=== PATIENT | male | born 1990 | race Caucasian/White ===

== ENCOUNTER 2022-07-02 17:23 | Outpatient (CLI) | payer OTHER, SELFPAY ==
[2022-07-02 14:34] LABS: Albumin* 4.6 g/dL (3.3-5.0); Chloride* 106 mmol/L (96-114); Potassium* 4.7 mmol/L (3.6-5.1); Sodium* 140 mmol/L (135-149)
[2022-07-02 14:36] LABS: Carbon Dioxide* 24 mmol/L (20-32); Cholesterol* 257 mg/dL (90-199); Creatinine* 0.9 mg/dL (0.5-1.5); Estimated Glomerular Filt Rate 117 ml/min
[2022-07-02 14:37] LABS: Alanine Aminotransferase* 31 U/L (4-50); Alkaline Phosphatase* 62 U/L (40-150); Aspartate Amino Transferase* 25 U/L (12-35); Bilirubin Total* 0.5 mg/dL (0.1-1.5); Blood Urea Nitrogen* 22 mg/dL (5-24); Calcium* 9.6 mg/dL (8.4-10.6); Glucose* 86 mg/dL (60-115); HDL Cholesterol* 64 mg/dL (>=40); LDL Cholesterol Calculated 169 mg/dL (<100); Total Protein* 7.3 g/dL (6.0-8.3); Triglycerides* 118 mg/dL (40-149)
[2022-07-04 01:33] LABS: Free T3 3.3 pg/mL (2.5-4.3)
== END 2022-07-02 17:24 | disposition home or self-care (01) ==
PROVIDERS: PCP Family Medicine; Visit Provider Nurse Practitioner Family
DX: Z79.899 Other long term (current) drug therapy (principal); Z13.6 Encounter for screening for cardiovascular disorders; Z13.29 Encounter for screening for other suspected endocrine disorder
CPT/HCPCS: 80053; 80061; 84443; 84481

== ENCOUNTER 2023-07-01 10:44 | Outpatient (CLI) | payer OTHER, SELFPAY | END 2023-07-01 10:45 | disposition home or self-care (01) | LOC: LKVREF 10:44 | PROVIDERS: PCP Family Medicine; Visit Provider Family Medicine | DX: Z00.00 Encounter for general adult medical examination without abnormal findings (principal); E78.00 Pure hypercholesterolemia, unspecified; R53.83 Other fatigue; E55.9 Vitamin D deficiency, unspecified; F41.8 Other specified anxiety disorders | CPT/HCPCS: 80048; 80061; 82306 ==

== ENCOUNTER 2024-08-03 14:52 | Outpatient (CLI) | payer OTHER, SELFPAY | END 2024-08-03 14:53 | disposition home or self-care (01) | PROVIDERS: PCP Family Medicine; Visit Provider Family Medicine | DX: E55.9 Vitamin D deficiency, unspecified (principal); E78.00 Pure hypercholesterolemia, unspecified; F41.8 Other specified anxiety disorders | CPT/HCPCS: 80053; 80061; 82306 ==

== ENCOUNTER 2025-07-02 10:50 | Outpatient (CLI) | payer BC, SELFPAY ==
[2025-07-02 21:43] LABS: Hematocrit* 44.9 % (37.0-53.0); Hemoglobin* 15.1 gm/dL (13.5-17.5); Immature Granulocytes Abs Auto 0.01 K/uL (0.00-0.30); Immature Granulocytes Pct Auto 0.2 %; Lymphocytes Absolute Auto 1.69 K/uL (0.90-2.90); Mean Corpuscular HGB Conc 34 gm/dL (32-36); Mean Corpuscular Hemoglobin 29 pg (26-34); Mean Corpuscular Volume 87 fL (80-100); RDW Coefficient of Variation % 12.8 % (11.5-15.5); Red Blood Count* 5.19 m/uL (4.30-5.90); White Blood Count* 5.69 K/uL (4.50-11.00)
[2025-07-02 21:51] LABS: Slide Review Reflex No
[2025-07-02 22:13] LABS: Free T4 Free Thyroxine* 0.95 ng/dL (0.70-1.85)
[2025-07-02 23:49] LABS: Albumin* 4.2 g/dL (3.3-5.0); Chloride* 106 mmol/L (96-114); Potassium* 4.6 mmol/L (3.6-5.1); Sodium* 136 mmol/L (135-149)
[2025-07-02 23:51] LABS: Blood Urea Nitrogen* 14 mg/dL (5-24); Creatinine* 0.9 mg/dL (0.5-1.5); Estimated Glomerular Filt Rate 115 ml/min
[2025-07-02 23:52] LABS: Alanine Aminotransferase* 19 U/L (4-50); Alkaline Phosphatase* 44 U/L (40-150); Anion Gap 4 mEq/L (7-15); Aspartate Amino Transferase* 21 U/L (12-35); Bilirubin Total* 0.5 mg/dL (0.1-1.5); Calcium* 9.6 mg/dL (8.4-10.6); Carbon Dioxide* 26 mmol/L (20-32); Glucose* 88 mg/dL (60-115); Total Protein* 6.7 g/dL (6.0-8.3)
== END 2025-07-02 10:51 | disposition home or self-care (01) ==
LOC: NPINS 10:53
PROVIDERS: PCP Family Medicine; Visit Provider Nurse Practitioner
DX: F42.9 Obsessive-compulsive disorder, unspecified (principal); F33.2 Major depressive disorder, recurrent severe without psychotic features
CPT/HCPCS: 80053; 80178; 84439; 84443; 85025